=== PATIENT | male | born 1960 | race Caucasian/White ===

== ENCOUNTER 2023-11-11 20:58 | Emergency (ER) | payer MEDICARE, SELFPAY ==
[2023-11-11 21:01] VITALS: BP 169/89
[2023-11-11 21:03] LABS: Glucose - Point of Care 173 mg/dl (70-99)
[2023-11-11 22:00] VITALS: BP 165/79
[2023-11-11] MEDS: ZOFRAN 4 MG IV (22:01)
[2023-11-11] MEDS: NSS 1000 IV (22:02)
[2023-11-11 22:22] LABS: Venous Blood Gas B.E. 1.3 mmol/L (-4 to +4); Venous Blood Gas HCO3 25.9 mmol/L (22-27); Venous Blood Gas O2 Sat % 90.8 %; Venous Blood Gas pCO2 40 mmHg (35-48); Venous Blood Gas pH 7.42 (7.32-7.43); Venous Blood Gas pO2 56 mmHg (30-50)
[2023-11-11 22:23] LABS: % Basophils 0.4 % (0-2); % Eosinophils 0.4 % (0-6); % Immature Granulocytes 0.4 % (0-0.5); % Lymphocytes 16.3 % (20.5-51.1); % Monocytes 8.5 % (1.7-9.3); Absolute Lymphocytes 1.5 10^3/uL (1.2-3.4); Absolute Monocytes 0.8 10^3/uL (0.1-0.6); Absolute Neutrophils 6.7 10^3/uL (1.4-6.5); Hematocrit 45.1 % (39.0-52.0); Hemoglobin 15.8 g/dL (13.0-18.0); Mean Corpuscular Hgb 29.6 pg (27.0-31.0); Mean Corpuscular Volume 84.5 fL (80.0-94.0); Mean Platelet Volume 9.1 fL (7.4-10.4); Nucleated Red Blood Cells % 0 % (-); Platelet Count 249 10^3/uL (130-400); Red Blood Cell Count 5.34 10^6/uL (4.70-6.10); Red Cell Dist. Width 13.1 % (11.5-14.5); Urine Albumin Negative (Neg - Trace); Urine Bilirubin Negative (Negative); Urine Character Clear (Clear); Urine Color Yellow; Urine Glucose 3+ (Negative); Urine Ketone 2+ (Negative); Urine Leukocyte Negative (Negative); Urine Nitrite Negative (Negative); Urine Occult Blood Trace (Negative); Urine Specific Gravity 1.015 (<1.030); Urine Urobilinogen Negative (Neg - 1+)
[2023-11-11 22:27] VITALS: BMI 26.6
[2023-11-11 22:36] LABS: Lactic Acid 1.6 mmol/L (0.7-2.0)
[2023-11-11 22:39] LABS: ALT (SGPT) 18 U/L (0-50); AST (SGOT) 22 U/L (17-59); Alkaline Phosphatase 101 U/L (38-126); Blood Urea Nitrogen 17 mg/dl (9-20); Calcium 9.8 mg/dl (8.4-10.2); Carbon Dioxide 24 mmol/L (22-30); Chloride 106 mmol/L (98-107); Estimated Creatinine Clearance 110 ml/min; Glucose 185 mg/dl (70-99); Lipase 22 U/L (23-300); Potassium 4.5 mmol/L (3.5-5.1); Sodium 136 mmol/L (135-145); Total Bilirubin 1.4 mg/dl (0.2-1.3); Total Protein 6.8 g/dl (6.3-8.2); eGFR > 60.00
[2023-11-11 22:42] LABS: Urine White Cell 0-2 /HPF (0-5)
[2023-11-11 22:48] LABS: Troponin I 0.019 ng/ml
--- NOTE | 2023-11-11 22:52 | ED.GENMED ---
History of Present Illness
General
Chief Complaint: Abdominal Symptoms
Source: patient and spouse
Exam Limitations: none
Time Seen by Provider: 11/11/23 21:15
Nursing documentation reviewed up to this point in time: agreed with
Travel History
Have you had any contact with someone who has COVID-19?: No
Do you have any symptoms of coronavirus? Fever > 100 degrees, chills, cough, shortness of breath, sore throat, loss of taste or smell, muscle aches, or headache?: No
History of Present Illness
History of Present Illness:
63-year-old male with past medical history of diabetes hypertension hyperlipidemia presenting to the emergency department today with concerns of intractable vomiting diarrhea over the past 2 days. Unable to keep anything down unable to take his
medications. Also was having severe leg cramps he does have this chronically has not been able to take his medications he typically takes for this which include gabapentin.
Past History
Past History
ED Past Medical History: Hypercholesterolemia, NIDDM and UT
ED Past Surgical History: None
Social History
Tobacco: Non-smoker
Review of Systems
Review of Systems
Allergies reviewed?: Yes
All Other Systems: ROS reviewed and negative except as documented in HPI and ROS
Phy Exam
Physical Exam
Physical Exam:
GENERAL: Alert , in no apparent distress
EYE: pupils equal and reactive
NECK: Supple, no significant adenopathy.
ENT: o/p clr, mmm.
CARDIAC: Regular rate and rhythm .
LUNGS: Clear breath sounds bilaterally, no acute respiratory distress, no wheezes/rales/rhonchi
ABDOMEN: Soft, without focal tenderness, no r/g, no cvat
NEUROLOGICAL: Alert and oriented, no focal neuro deficits
SKIN: Warm and dry, skin intact.
MUSCULOSKELETAL: No edema, well perfused.
PSYCH: Normal and appropriate interaction.
Course
Orders/Labs/Results
Orders:
Orders
11/11/23 21:18
0.9% Sodium Chloride 1000 ml [Nss] 1,000 ml IV BOLUS
Ondansetron Injectable [Zofran] 4 mg IV NOW STA
11/11/23 22:06
Complete Blood Count/With Diff Urgent
Comprehensive Metabolic Panel Urgent
Lactic Acid Urgent
Lipase Urgent
Troponin I Urgent
Urinalysis Reflex To Culture Urgent
Date Specimen was Collected: 11/11/23
Time Specimen was Collected: 21:50
Urine Microscopic Reflex Cult Urgent
Venous Blood Gas Urgent
%Oxygen/Room Air: 95
Abnormal Lab Results
11/11/23 11/11/23
21:02 22:06
Absolute Neuts (auto) 6.7 H 10^3/uL
(1.4-6.5)
Absolute Monos (auto) 0.8 H 10^3/uL
(0.1-0.6)
Lymphocytes % 16.3 L %
(20.5-51.1)
VBG pO2 56 H mmHg
(30-50)
Glucose 185 H mg/dl
(70-99)
Total Bilirubin 1.4 H mg/dl
(0.2-1.3)
Lipase 22 L U/L
(23-300)
Urine Ketones 2+ A
(Negative)
Ur Occult Blood Reflex Trace A
(Negative)
Urine RBC 3-6 A /HPF
(0-2)
Urine Glucose 3+ A
(Negative)
POC Glucose 173 H mg/dl
(70-99)
11/11/23 22:06
11/11/23 22:06
Vital Signs
Initial and Last Documented VS:
Initial Vital Signs
Temp Pulse Resp BP Pulse Ox
98.2 F 82 28 169/89 98
11/11/23 21:01 11/11/23 21:01 11/11/23 21:01 11/11/23 21:01 11/11/23 21:01
Last Documented Vital Signs
Temp Pulse Resp BP Pulse Ox
98.2 F 82 17 154/77 95
11/11/23 21:01 11/11/23 23:00 11/11/23 23:00 11/11/23 23:00 11/11/23 23:00
MDM/Problems Addressed
MDM/Problems Addressed:
63-year-old male presenting to the emergency department today with concerns of ongoing vomiting diarrhea over the past 2 days no abdominal pain but has had severe leg cramping. Does have restless leg syndrome unable to take his medications due to
the vomiting. Patient was given Zofran and fluids with significant improvement of symptoms. Able to tolerate by mouth able to take his home medications with significant improvement of symptoms as well. Stable for outpatient management return
precautions given.
*Critical Care Note
Total Time (30-74mins, 75-104mins- exclusive of procedures): Not Applicable
ED Attending Note
-
Portions of this chart may have been created with voice recognition software.� Occasional wrong word or��sound alike� substitutions may have occurred due to the inherent limitations of voice recognition software.
Discharge Plan
Departure
Patient Disposition: Home (Routine Discharge)
Date of Disposition: 11/11/23
Time of Disposition: 23:47
Patient with high blood pressure during this ER visit?: No
Condition: Good
Covid-19: Not Applicable
Discharge Problem:
Nausea & vomiting, Diarrhea
Instructions: Nausea and Vomiting, Adult (DC)
Prescriptions:
New
ondansetron 4 mg tablet,disintegrating
4 mg PO Q8H PRN (Reason: nausea and vomiting) Qty: 7 0RF
No Action
atorvastatin 10 MG tablet
20 mg PO DAILY
citalopram 10 MG tablet
20 mg PO DAILY
clopidogrel 75 MG tablet
75 mg PO DAILY
carvedilol 3.125 MG tablet
3.125 mg PO DAILY
ropinirole 0.25 MG tablet
0.25 mg PO DAILY
insulin aspart U-100 [Novolog FlexPen U-100 Insulin] 300 UNITS/3 ML insulin pen
1 unit SC PRN PRN (Reason: increased blood sugar)
Patient Comments:
Patient uses sliding scale
insulin glargine [Basaglar KwikPen U-100 Insulin] 100 UNIT/ML insulin pen
60 units SC HS
Calcium Carb/D3/Magnesium/Zinc
1 tab PO DAILY
Referrals:
Sybil Gaines DO [Family Provider] -
Activity Restrictions/Additional Instructions:
You came the emergency department today with concerns of nausea vomiting diarrhea. This may be from a stomach bug. Your labs were reassuring. Please take Zofran 1 tab every 6 hours or so as needed and rehydrate at home. Return to the emergency
department for any worsening, new or concerning symptoms.
Interventions
Interventions:
*Risk Screen - Suicide Last Done: 11/11/23 21:01
*General Assessment Last Done: 11/11/23 21:01
*Neglect/Abuse Screening Last Done: 11/11/23 21:01
ED- Fall Risk Assessment Last Done: 11/11/23 21:01
*ED COVID-19 Vaccine History Last Done: 11/11/23 21:01
FW-Cdqlhh-Zgzzqbjwst Assessment Last Done: 11/11/23 22:27
Discharge Date and Time
Print Language: CITIZ[place]
[2023-11-11 23:00] VITALS: BP 154/77
== END 2023-11-12 00:24 | disposition home or self-care (01) ==
LOC: EMR 20:58
PROVIDERS: Physician Assistant; EMERGENCY PHYSICIAN Emergency Medicine; FAMILY PHYSICIAN Family Medicine
DX: R11.2 Nausea with vomiting, unspecified (principal); R19.7 Diarrhea, unspecified
CPT/HCPCS: 99284; 96374; 96361; 80053; 81003; 81015; 82805; 82962; 83605; 83690; 84484; 85025